=== PATIENT | female | born 1980 | race Two or more races ===

== ENCOUNTER 2017-07-23 03:11 | Emergency (ER) | payer OTHER ==
[~2017-07-23] VITALS: Ht 177.8 cm; Wt 82.6 kg
--- NOTE | 2017-07-23 04:02 | Emergency Room Report ---
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 She be evaluated for prophylaxis. We do not have culture results yet. Second hand smoke growing up. Child ill with cough for 2 weeks. She has cough with congestion mid chest. No wheezes heard. + flu vaccination. Normal menses, no NVD, dysuria. Allergies: Coded Allergies: No Known Allergies (Unverified , 07/23/17) Patient History Past Medical History: see triage record Social History: Denies: smoking Social History Narrative [employer] - son with URI at home Reviewed Nursing Documentation: PMH: Agreed, PSxH: Agreed Nursing Documentation-PMH Past Medical History: No Stated History Review of Systems All Other Systems: negative except mentioned in HPI Physical Exam Vital Signs Date Time Temp Pulse Resp B/P (MAP) Pulse Ox O2 Delivery O2 Flow Rate FiO2 07/23/17 03:13 98.1 68 18 116/78 97 Room Air Sp02 EP Interpretation: reviewed, normal General Appearance: well appearing, no apparent distress, alert Head: normocephalic, atraumatic Eyes: bilateral eye normal inspection, bilateral eye PERRL ENT: hearing grossly normal, normal voice Neck: full range of motion, supple Respiratory: lungs clear, normal breath sounds, no respiratory distress, speaking full sentences, other - slight post tussive exp wheeze Cardiovascular #1: regular rate, rhythm Gastrointestinal: normal inspection Musculoskeletal: no calf tenderness Neurologic: alert, oriented x3, normal gait, grossly normal Psychiatric: mood/affect normal Skin: no rash Medical Decision Making Diagnostic Impression: Primary Impression: exposure to patient with meningitis Additional Impression: Bronchospasm ER Course 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 We are unable to get rapid results to exclude meningococcal meningitis. She needs prophylaxis. In addition, she has evidence of bronchospasm. Breathing treatment ordered. Improved with treatment. Patient stable for outpatient observation and treatment. Last Vital Signs Date Time Temp Pulse Resp B/P (MAP) Pulse Ox O2 Delivery O2 Flow Rate FiO2 07/23/17 06:34 98.1 68 18 116/78 97 Room Air Status: improved Disposition: HOME, SELF-CARE Condition: Improved Scripts Albuterol Sulfate* (ALBUTEROL SULFATE MDI*) 8.5 Gm Hfa.aer.ad 1 PUFF INH Q6H, #1 EA 0 Refills Prov: Kunal,Jai M.D. 07/23/17 Guaifenesin/Dextromethorphan (ROBITUSSIN COUGH-CHEST DM LIQ) 237 Ml Liquid 5 ML PO Q6HR, #90 ML Prov: Jai Syed M.D. 07/23/17 Ciprofloxacin HCl (Cipro) 250 Mg Tablet 250 MG ORAL EVERY 12 HOURS, #14 TAB Prov: Jai Syed M.D. 07/23/17 Referrals: NOT CHOSEN SHAYY/,REFERRING (PCP) Jai Syed M.D. Jul 23, 2017 04:02
[2017-07-23] MEDS ORDERED: Ciprofloxacin 500mg tab ORAL ONE (05:30)
[2017-07-23] MEDS ORDERED: Albuterol ud Inhalation HHN ONE (05:30)
[2017-07-23] MEDS ORDERED: CIPRO250 MG ORAL (06:23)
[2017-07-23] MEDS ORDERED: ALBUTEROL SULF8.5 GM INH (06:23)
[2017-07-23] MEDS ORDERED: ROBITUSSIN COU237 M1 PO (06:23)
[2017-07-23 06:33] VITALS: BP 116/78
[2017-07-23 06:34] VITALS: BP 116/78
== END 2017-07-23 06:40 | disposition home or self-care (01) ==
LOC: EMR 03:32
DX: Z20.811 Contact with and (suspected) exposure to meningococcus (principal); J98.01 Acute bronchospasm
CPT/HCPCS: 99283